=== PATIENT | female | born 1955 | race Caucasian/White ===

== ENCOUNTER → 2018-05-17 | Outpatient (CLI) | payer OTHER ==
--- NOTE | 2018-05-17 18:45 | KCIC ---
Bilateral digital screening mammograms with 3-D tomosynthesis: Reason for examination: Routine screening. Comparison is made to previous study dated 09/10/2009. Bilateral mammograms in CC and oblique projections were obtained with 2-D imaging and 3-D tomosynthesis imaging on a Siemens Inspiration unit and reviewed on the workstation. Interpretation was made with the benefit of CAD. The skin and nipples show no abnormalities. No abnormal axillary lymph nodes are seen. The breast parenchyma is heterogeneously dense. (Breast density: Category C.) There appears to be interval development of a small nodular parenchymal density at approximately the 6:00 B position of the right breast measuring approximately 6.2 mm in size and a cluster of microcalcifications at approximately the 9:30 B position of the right breast. There appear to be 2 small nodules located in the left breast in the central 6:00 B position measuring 4.8 mm in size and in the 9:00 B position measuring approximately 4.5 mm in size and clustered microcalcifications in the retroareolar 12:00 A position of the left breast. Further evaluation of the calcifications bilaterally with coned magnification views is recommended and further evaluation of the nodules bilaterally with ultrasound is recommended. There are no other new dominant masses, suspicious calcifications or architectural distortion. Impression: Clustered calcifications in the 9:30 B position of the right breast and retroareolar 12:00 A position of the left breast. Recommend further evaluation with coned magnification views. Small nodular densities at the 6:00 B position of the right breast and at the 6:00 B and 9:00 B positions of the left breast. Recommend further evaluation with ultrasound. Your patient's mammogram demonstrates that she has dense breast tissue (breast density category C or D), which could hide abnormalities, and if she has other risk factors for breast cancer that have been identified, she might benefit from supplemental screening tests that may be suggested by you as her ordering physician. Dense breast tissue, in and of itself, is a relatively common condition. Therefore, this information is not provided to cause undue concern, but rather to raise your awareness and to promote discussion with your patient regarding the presence of other risk factors, in addition to dense breast tissue. Your patient's mammography results will be sent to her. BI-RAD Category 0: Incomplete. Needs additional imaging evaluation. "Our facility is accredited by the [employer] Mammography [employer]." This patient's information has been entered into a reminder system for the patient to be notified with the results of her examination and a target date for the next mammogram. Electronically signed by: Leah Beasley MD (05/17/2018 6:42 PM) [id number]
== END | disposition home or self-care (01) ==
LOC: KCIC MAMMO 10:42
PROVIDERS: ATTEND Obstetrics & Gynecology
DX: Z12.31 Encounter for screening mammogram for malignant neoplasm of breast (principal)
CPT/HCPCS: 77063; 77067